=== PATIENT | male | born 1950 | race Two or more races ===

== ENCOUNTER 2023-03-28 13:50 | Emergency (ER) | payer OTHER ==
[~2023-03-28] VITALS: Ht 170.2 cm; Wt 77.1 kg
[2023-03-28] MEDS ORDERED: TOPROL XL25 M1 (14:47)
[2023-03-28] MEDS ORDERED: ATACAND32 MG (14:47)
[2023-03-28] MEDS ORDERED: CARDURA1 MG PO (14:47)
[2023-03-28 17:24] LABS: HEMATOCRIT 39.7 % (39.0-48.0); HEMOGLOBIN 12.9 g/dL (13-16.00); MEAN CELL VOLUME 89.4 fL (80.0-100.00); MEAN CORPUSCULAR HEMOGLOBIN 29.2 pg (27.00-32.0); MEAN CORPUSCULAR HGB CONC 32.6 g/dl (32.0-36.0); PLATELET COUNT 352 K/uL (150-450); RED BLOOD COUNT 4.44 M/uL (4.00-6.00); RED CELL DISTRIBUTION WIDTH 13.9 % (11.5-14.5)
== END 2023-03-28 20:07 | disposition home or self-care (01) ==
LOC: ER 13:51
PROVIDERS: General Practice
DX: J45.909 Unspecified asthma, uncomplicated (principal); Z91.041 Radiographic dye allergy status; Z20.822 Contact with and (suspected) exposure to COVID-19
CPT/HCPCS: 36415; 71046; 94640; 96365; 99285; J2930

== ENCOUNTER 2023-04-02 12:20 | Emergency (ER) | payer OTHER ==
[~2023-04-02] VITALS: Ht 170.2 cm; Wt 77.1 kg
[~2023-04-02 12:20] MED LIST: ATACAND32 MG; CARDURA1 MG PO; TOPROL XL25 M1
[2023-04-02 15:21] LABS: HEMATOCRIT 39.6 % (39.0-48.0); MEAN CELL VOLUME 90.5 fL (80.0-100.00); MEAN CORPUSCULAR HEMOGLOBIN 29.7 pg (27.00-32.0); MEAN CORPUSCULAR HGB CONC 32.8 g/dl (32.0-36.0); PLATELET COUNT 325 K/uL (150-450); RED BLOOD COUNT 4.38 M/uL (4.00-6.00); RED CELL DISTRIBUTION WIDTH 13.7 % (11.5-14.5)
[2023-04-02 15:40] LABS: CALCIUM 9.1 mg/dL (8.5-10.1); CREATININE SERUM 1.02 mg/dL (0.70-1.30); GFR 71.39; POTASSIUM 3.3 mEq/L (3.5-5.1)
== END 2023-04-02 16:03 | disposition home or self-care (01) ==
LOC: ER 12:21
PROVIDERS: General Practice
DX: R07.9 Chest pain, unspecified (principal); J45.909 Unspecified asthma, uncomplicated; Z91.041 Radiographic dye allergy status